=== PATIENT | female | born 2000 | race Caucasian/White ===

== ENCOUNTER 2020-10-08 16:44 | Observation (INO) | payer BC, SELFPAY ==
[~2020-10-08 16:44] MED LIST: Iopamidol-370 76% 500 ML 1 ML ONE
[2020-10-08 17:38] LABS: #Eosinphils 0.1 thou/uL (0.0-0.7); #Lymphocytes 2.8 thou/uL (1.20-3.40); #Monocytes 0.6 thou/uL (0.11-0.59); #Neutrophils 7.8 thou/uL (1.40-6.50); %Basophils 0.3 % (0.0-1.0); %Eosinophils 1.3 % (0.0-10.0); %Lymphocytes 24.9 % (21.0-51.0); %Monocytes 4.8 % (0.0-10.0); %Neutrophils 68.7 % (42.0-75.0); Hemoglobin 14.3 g/dL (12.0-16.0); Mean Corpuscular HGB CONC 35.4 g/dL (32.0-36.0); Mean Corpuscular Hemoglobin 33.2 pg (27.0-31.0); Mean Corpuscular Volume 93.8 fL (78.0-98.0); Mean Platelet Volume 7.8 fL (7.4-10.4); Platelet Count 349 thou/uL (130-400); RBC Distribution Width 11.4 % (11.5-14.5); Red Blood Cell (RBC) Count 4.29 mill/uL (4.20-5.40); White Blood Cell (WBC) Count 11.3 thou/uL (4.8-10.8)
[2020-10-08 17:40] LABS: BHCG - Serum Negative (NEGATIVE); Pregs Control Background? CLEAR/WHITE (CLR/WHITE); Pregs Control Bar Appear? YES (CONTROL BAR)
[2020-10-08] MEDS ORDERED: Famotidine/PF 20 mg/2ml Vial ONE ×2 (17:46→17:56)
[2020-10-08 17:59] LABS: ALT (SGPT) 23 U/L (8-55); AST (SGOT) 25 U/L (5-34); Albumin 4.2 g/dL (3.5-5.0); Alkaline Phosphatase 109 U/L (40-110); Anion Gap 13 mmol/L (10-20); BUN (Urea Nitrogen) 8 mg/dL (7.0-18.7); Bilirubin, Total 0.3 mg/dL (0.2-1.2); Calc. Creatinine Clearance 0 mL/min (70-130); Calcium 9.8 mg/dL (7.8-10.44); Carbon Dioxide 27 mmol/L (22-29); Chloride 106 mmol/L (98-107); Globulin 3.3 g/dL (2.4-3.5); Glucose 96 mg/dL (70-105); Lipase 333 U/L (8-78); Potassium 3.9 mmol/L (3.5-5.1); Protein, Total 7.5 g/dL (6.0-8.3); Sodium 142 mmol/L (136-145)
[2020-10-08 19:35] LABS: Bacteria/HPF None Seen HPF (None Seen); Bilirubin Negative (Negative); Blood, Urine Trace (Negative); Clarity Clear (Clear); Glucose, Urine (Dipstick) Normal (Negative); Ketone, Urine Negative (Negative); Leukocyte Negative Leu/uL (Negative); Nitrite Negative (Negative); Protein, Urine (Dipstick) Negative (Neg-Trace); RBC/HPF None Seen HPF (0-3); Specific Gravity, Urine 1.006 (1.002-1.036); Urobilinogen Normal mg/dL (Less than 2); WBC/HPF 0-3 HPF (0-3)
[2020-10-08] MEDS ORDERED: Ondansetron PF 4 MG/2 ML Vial IVP PRN (22:00)
[2020-10-08] MEDS ORDERED: Ondansetron ODT 4 MG TAB SL PRN (22:00)
[2020-10-08] MEDS ORDERED: Fentanyl 100 MCG/2 ML VIAL SLOW IVP PRN (22:01)
[2020-10-08] MEDS ORDERED: Morphine 2 MG/ML VIAL SLOW IVP PRN (22:02)
[2020-10-08] MEDS ORDERED: Acetaminophen 325 MG TAB PO PRN (22:07)
[2020-10-08] MEDS ORDERED: HYDROcodone/Acetaminophen 5/325 mg Tablet PO PRN (22:07)
[2020-10-08] MEDS: Sodium Chloride 0.9% 1,000 ML IV SCH ×2 (22:33→22:34)
[2020-10-08 22:41] VITALS: BMI 33.3
[2020-10-09 02:11] LABS: SARS-CoV-2 PCR by NAA Not Detected (NotDetected)
[2020-10-09] MEDS: Sodium Chloride 0.9% 1,000 ML IV SCH ×4 (05:47→08:58)
[2020-10-09 05:53] LABS: #Eosinphils 0.2 thou/uL (0.0-0.7); #Lymphocytes 2.8 thou/uL (1.20-3.40); #Monocytes 0.5 thou/uL (0.11-0.59); #Neutrophils 4.7 thou/uL (1.40-6.50); %Basophils 0.2 % (0.0-1.0); %Monocytes 5.8 % (0.0-10.0); %Neutrophils 57.9 % (42.0-75.0); Hemoglobin 13.2 g/dL (12.0-16.0); Mean Corpuscular HGB CONC 35.3 g/dL (32.0-36.0); Mean Corpuscular Hemoglobin 33.3 pg (27.0-31.0); Mean Corpuscular Volume 94.4 fL (78.0-98.0); Mean Platelet Volume 7.8 fL (7.4-10.4); Platelet Count 284 thou/uL (130-400); RBC Distribution Width 11.4 % (11.5-14.5); Red Blood Cell (RBC) Count 3.95 mill/uL (4.20-5.40); White Blood Cell (WBC) Count 8.1 thou/uL (4.8-10.8)
[2020-10-09 06:15] LABS: Anion Gap 8 mmol/L (10-20); BUN (Urea Nitrogen) 6 mg/dL (7.0-18.7); Calc. Creatinine Clearance 173 mL/min (70-130); Calcium 8.2 mg/dL (7.8-10.44); Carbon Dioxide 25 mmol/L (22-29); Chloride 110 mmol/L (98-107); Glucose 94 mg/dL (70-105); Potassium 3.7 mmol/L (3.5-5.1); Sodium 139 mmol/L (136-145)
[2020-10-09] MEDS ORDERED: Enoxaparin Sodium 40 MG/0.4 ML SYRINGE SC SCH (09:00)
[2020-10-09] MEDS ORDERED: Pantoprazole 40 MG VIAL IVP SCH (09:00)
[2020-10-09] MEDS ORDERED: Fentanyl 100 MCG/2 ML VIAL ONE (12:22)
[2020-10-09] MEDS ORDERED: PROPOFOL 200 MG/20 ML VIAL ONE (12:43)
[2020-10-09] MEDS ORDERED: Promethazine HCl 25 MG/ML VIAL SLOW IVP PRN (13:04)
[2020-10-09] MEDS ORDERED: Ondansetron HCl/PF 4 MG/2 ML Vial IVP PRN (13:04)
[2020-10-09] MEDS ORDERED: PACU-Morphine 4MG/ML VIAL SLOW IVP PRN (13:04)
[2020-10-09] MEDS ORDERED: Promethazine HCl 25 MG/ML VIAL IM PRN (13:04)
[2020-10-09 15:14] VITALS: TEMP 98.6
[2020-10-09 18:04] VITALS: BP 98/60
== END 2020-10-09 18:31 | disposition home or self-care (01) ==
LOC: ERS 16:44 → T4-A 20:58
PROVIDERS: ADMIT Student in an Organized Health Care Education/Training Program; ATTEND Student in an Organized Health Care Education/Training Program
PROC: 0DB78ZX Excision of Stomach, Pylorus, Via Natural or Artificial Opening Endoscopic, Diagnostic (ICD-10-PCS; principal; 2020-10-09)
DX: K29.50 Unspecified chronic gastritis without bleeding (principal); K85.90 Acute pancreatitis without necrosis or infection, unspecified; K82.8 Other specified diseases of gallbladder; M47.817 Spondylosis without myelopathy or radiculopathy, lumbosacral region; Z88.0 Allergy status to penicillin; Z20.822 Contact with and (suspected) exposure to COVID-19
CPT/HCPCS: 36415; 74177; 76705; 80048; 80053; 81003; 81015; 83690; 84478; 84703; 85025; 87635; 88305; 96372; 96374; 96375; C9113; G0378; J1650; J2704; J3010; Q9967; S0028; U0003; U0005